=== PATIENT | female | born 1975 | race Hispanic/Latino ===

== ENCOUNTER 2023-01-12 07:13 | Emergency (ER) | payer SELFPAY ==
[2023-01-12 07:21] VITALS: BP 118/76; PULSE 61; RESP 12; TEMP 36.7; O2SAT 100
--- NOTE | 2023-01-12 07:41 | ED.RECABL ---
HPI - Recheck/Abnormal Lab/Rx General Chief Complaint: Recheck/Abnormal Lab/Rx Stated Complaint: need blood transfusion Time Seen by Provider: 01/12/23 07:22 History of Present Illness HPI narrative: Pt with h/o heavy periods presents afer being told her CBC yesterday showed she needed a transfusion today. She had heavy periods earlier in the month but is now down to just light spotting. No lightheadedness, chest pain, difficulty breathing, or other concerning symptoms. Related Data Allergies Allergy/AdvReac Type Severity Reaction Status Date / Time No Known Allergies Allergy Unknown Unverified 04/03/19 12:30 No Known Allergies Allergy Uncoded 04/03/19 12:30 Review of Systems Review of Systems: CONST: No fever. HEENT: No sore throat C/V: No chest pain RESP: No cough GI: No abdominal pain, nausea or vomiting : Light spotting M/S: No joint pain. SKIN: No rash. NEURO: [No headache or focal numbness or weakness] PSYCH: [No depression] [facility] Past Medical History Medical History (Updated 01/12/23 @ 08:29 by Pattie Dunn MD) Anemia Social History Social History Smoking status: Never smoker Alcohol intake: never Exam Narrative: EXAMINATION OF ORGAN SYSTEMS/BODY AREAS: Constitutional: Vital signs per nursing GENERAL:[No acute distress, non-toxic appearing.] HEAD: Normal with no signs of head trauma. EYES: EOMI ENT: Hearing grossly intact LUNGS: Nonlabored breathing. HEART: [Regular rate and rhythm] ABD: [Soft], [nontender to palpation] EXT: Normal range of motion SKIN: [No rashes or lesions.] NEURO: [Alert and oriented x 3. No gross focal sensory or strength deficits.] PSYCH: Normal affect Course Vital Signs Vital signs: Vital Signs Temperature 98.0 F 01/12/23 07:21 Pulse Rate 61 01/12/23 07:21 Respiratory Rate 12 01/12/23 07:21 Blood Pressure 118/76 01/12/23 07:21 Pulse Oximetry 100 01/12/23 07:21 Oxygen Delivery Room Air 01/12/23 07:21 Temperature 98.0 F 01/12/23 07:21 Pulse Rate 65 01/12/23 09:04 Respiratory Rate 12 01/12/23 07:21 Blood Pressure 111/75 01/12/23 09:04 Pulse Oximetry 100 01/12/23 07:21 Oxygen Delivery Room Air 01/12/23 07:21 MDM - Recheck/Abnormal Lab/Rx MDM Narrative Medical decision making narrative: 1) Differential diagnosis: Anemia, dysfunctional uterine bleeding 2) Comorbidities: Anemia 3) External notes reviewed: Prior operative note 4) History sources independently obtained from: Patient, son at bedside 5) Discussion of management with: [] 6) Independent interpretation of: Labs 7) Diagnostic tests or therapies considered but not ordered: [] 8) Social determinants of health: [] 9) Shared decision making: History obtained with help from precision assembler as patient German-speaking 47-year-old female presenting with anemia, has history of this with heavy uterine bleeding, already seeing [facility] for this and has tried multiple therapies including oral contraceptives. She is not currently having any heavy bleeding at this moment, was told to come in for low hemoglobin and blood transfusion. Hemoglobin checked here is stable at 7.9, which I did not note is near her baseline, she is not having ongoing heavy bleeding at this time and I do feel she is stable for discharge at this time and she is happy about this. She has follow-up with her primary care doctor and she can return for any further issues Lab Data 01/12/23 07:40 01/12/23 07:40 Labs: Lab Results 01/12/23 Range/Units 07:40 WBC 5.4 (4.5-10.0) K/mm3 RBC 4.20 (4.2-5.4) M/mm3 Hgb 7.9 L (12.0-15.0) g/dL Hct 28.7 L (37.0-47.0) % MCV 68.3 L (80-100) fl MCH 18.8 L (26-34) pg MCHC 27.5 L (32-36) g/dl RDW 19.9 H (11.5-14.5) % Plt Count 351 (150-375) k/mm3 MPV 8.4 (7.4-10.4) fl Immature Gran % (Auto) 0.2 (0-0.5) % Neut % (Auto) 49.1 (45.5-73.1
[2023-01-12 07:45] LABS: Basophils Absolute Auto 0.1 K/mm3 (0.0-0.1); Basophils Percent Auto 0.9 % (0.2-1.2); Eosinophils Absolute Auto 0.1 K/mm3 (0-0.3); Eosinophils Percent Auto 1.1 % (0-4.4); Hematocrit 28.7 % (37.0-47.0); Hemoglobin 7.9 g/dL (12.0-15.0); Immature Granulocyte Absolute 0.01 K/mm3 (0.00-0.031); Immature Granulocyte Percent A 0.2 % (0-0.5); Lymphocytes Absolute Auto 2.29 K/mm3 (0.9-3.2); Lymphocytes Percent Auto 42.4 % (18.3-44.2); Mean Corpuscular HGB Conc 27.5 g/dl (32-36); Mean Corpuscular Hemoglobin 18.8 pg (26-34); Mean Corpuscular Volume 68.3 fl (80-100); Mean Platelet Volume 8.4 fl (7.4-10.4); Monocytes Absolute Auto 0.3 K/mm3 (0.1-0.6); Monocytes Percent Auto 6.3 % (2.6-8.5); Neutrophils Absolute Auto 2.7 K/mm3 (1.3-6.7); Neutrophils Percent Auto 49.1 % (45.5-73.1); Platelet Count Result 351 k/mm3 (150-375); Red Cell Distribution Width 19.9 % (11.5-14.5); White Blood Count 5.4 K/mm3 (4.5-10.0)
[2023-01-12 07:54] LABS: Alanine Aminotransferase 26 U/L (6-35); Albumin Level 4.2 g/dL (3.5-5.1); Alkaline Phosphatase 69 U/L (38-126); Anion Gap 8 mmol/L (8-16); Aspartate Amino Transferase 29 U/L (14-36); Bilirubin,Total 0.2 mg/dL (0.2-1.3); Blood Urea Nitrogen 10 mg/dL (7-17); Calcium 8.3 mg/dL (8.4-10.2); Carbon Dioxide 26 mmol/L (22-30); Chloride 106 mmol/L (98-107); Estimated CRCL calculation 111 ml/min; Estimated Glomerular Filt Rate > 60; Glucose 106 mg/dL (65-110); Sodium 140 mmol/L (137-145)
[2023-01-12 07:55] LABS: Prothrombin Time 13.2 Seconds (11.1-14.7)
[2023-01-12 07:56] LABS: Partial Thromboplastin Time 29.2 SECONDS (22.3-36.8)
[2023-01-12 08:08] LABS: Large Platelets Present; Platelet Estimate Adequate (Adequate)
[2023-01-12 08:09] LABS: Anisocytosis 2+ (NORMAL); Hypochromasia 1+ (NORMAL); Microcytosis 2+ (NORMAL)
[2023-01-12 08:11] LABS: Spherocytes 1+ (NORMAL)
[2023-01-12 08:17] LABS: Schistocytes None Seen (NORMAL)
[2023-01-12 09:01] VITALS: BP 117/76; BP 126/70; PULSE 59; PULSE 66
[2023-01-12 09:04] VITALS: BP 111/75; PULSE 65
[2023-01-12 09:30] VITALS: BP 126/80; PULSE 76; RESP 16; TEMP 36.8; O2SAT 98
[2023-01-12 09:39] VITALS: TEMP 36.8
== END 2023-01-12 09:39 | disposition home or self-care (01) ==
LOC: ANHED 09:01
PROVIDERS: Emergency Provider Emergency Medicine; PCP Physician Assistant
DX: D64.9 Anemia, unspecified (principal)
CPT/HCPCS: 36415; 80053; 85025; 85610; 85730; 86850; 86900; 86901; 99283

== ENCOUNTER 2024-02-01 18:01 | Emergency (ER) | payer SELFPAY ==
--- NOTE | ~2024-02-01 | CT_ITS ---
CT of the Abdomen and Pelvis: Indication: Abdominal pain Technique: 2.5 mm axial scans were obtained through the abdomen and pelvis following intravenous adm inistration of 100 cc of Omnipaque 350. Dose reduction technique was used on this scan by utilizing a utomated exposure control and iterative reconstruction technique. The dose-length product (DLP) was 4 95.63 mGy-cm. Findings: Scans through the lung bases are unremarkable. The liver, spleen, pancreas, adrenals and kidneys are within normal limits. Cholecystectomy clips are present. No evidence of aortic aneurysm. No lymphadenopathy. No bowel obstruction or bowel wall thickening. There is no evidence to suggest acute appendicitis. Images through the pelvis were performed. Urinary bladder unremarkable. No pelvic mass seen. No ascit es. Impression: No significant abnormalities seen. Reviewed, dictated and finalized at [facility]. Impression: No significant abnormalities seen.
[2024-02-01 18:05] VITALS: BP 128/84; PULSE 81; RESP 16; TEMP 36.4; O2SAT 100
[2024-02-01 21:21] VITALS: BP 141/68; PULSE 73; RESP 20; TEMP 36.6; O2SAT 100
[2024-02-02 01:02] VITALS: BP 132/73; PULSE 64; RESP 16; O2SAT 100
--- NOTE | 2024-02-02 01:12 | ED.GENADULT ---
[facility] - General Adult General Chief complaint: Abdominal Pain Stated complaint: uterine prolapse, bleeding Time Seen by Provider: 02/02/24 01:11 Source: patient and assistant facility manager Mode of arrival: ambulatory Limitations: language barrier History of Present Illness HPI narrative: This is a 48-year-old female who speaks Kyrgyz and presents to the ED for chief complaint of vaginal bleeding x2 weeks straight. Also reports some swelling to the vaginal canal. States that it was hanging out. Patient was seen at another facility recently and told that she may need to have gynecological surgery. She has been waiting for return call to set up surgery but this is not happened yet. She is scheduled to see [facility] LOOM FIXER HELPER in the coming weeks in clinic. States today the bleeding continues and the pelvic swelling had worsened so she came in. States that she has some left lower groin / pelvic pain as well. Denies fevers, chills, syncope, lightheadedness shortness of breath, chest pain, nausea, vomiting, diarrhea Related Data Allergies Allergy/AdvReac Type Severity Reaction Status Date / Time No Known Allergies Allergy Unknown Verified 02/02/24 01:04 Review of Systems Review of Systems: All systems as dictated in [facility] Past Medical History Medical History (Updated 02/02/24 @ 03:25 by Ernesto Jones PA-C) Anemia Social History Social History Smoking status: Never smoker Alcohol intake: never Exam Narrative: GENERAL: Well-appearing, well-nourished, and in no acute distress. HEAD: Normocephalic, atraumatic. EYES: PERRLA and EOMI. ENT: Nares clear, no rhinorrhea or epistaxis. Mucous membranes moist. Oropharynx without tonsillar hypertrophy exudate or other lesions. NECK: Supple. No adenopathy or masses. CHEST: No respiratory distress. Clear to auscultation. No wheezes rales or rhonchi HEART: Regular rate and rhythm. No murmur heard. Normal peripheral pulses. ABDOMEN: Soft, nontender, nondistended, normal active bowel sounds. MSK: Normal range of motion. No edema. SKIN: Warm, dry, no rash. NEURO: Alert and oriented x4. No focal deficits. PSYCH: Normal mood and affect. pelvic exam done with female RN kiln firer present: no uterine prolapse there is some weakening of the vaginal wall anteriorly. Mild amount of blood pooling in the vaginal vault. No purulence . no lesions. Course Vital Signs Vital signs: Vital Signs Temperature 97.6 F 02/01/24 18:05 Pulse Rate 81 02/01/24 18:05 Respiratory Rate 16 02/01/24 18:05 Blood Pressure 128/84 02/01/24 18:05 Pulse Oximetry 100 02/01/24 18:05 Oxygen Delivery Room Air 02/01/24 18:05 Temperature 97.9 F 02/01/24 21:21 Pulse Rate 64 02/02/24 01:02 Respiratory Rate 16 02/02/24 01:02 Blood Pressure 132/73 02/02/24 01:02 Pulse Oximetry 100 02/02/24 01:02 Oxygen Delivery Room Air 02/01/24 18:05 Medical Decision Making MDM Narrative Medical decision making narrative: This is a 48-year-old female who presents to the ED for chief complaint of abnormal vaginal bleeding as well as possible uterine prolapse. Vitals are normal. Exam is benign overall. No evidence of uterine prolapse. There may be a minor cystocele. There is mild bleeding present as well a pelvic exam. Hemoglobin is low at 8.2 but this is consistent with a lot of her previous measures. Urinalysis shows 1+ leuks and 11-20 whites with 21-50 red blood cells. She is not exhibiting urinary symptoms. Urine culture is pending will hold on treatment for now. CT abdomen pelvis with contrast shows hepatic steatosis but no acute findings. Patient is doing well with Toradol on re-evaluation. She will be given referral to OBGYN for surgical management of possible cystocele. Rx for Toradol given. Pt will be discharged in stable condition. Return precautions given and supportive measures discussed. Pt is
[2024-02-02 02:03] LABS: Basophils Absolute Auto 0.1 K/mm3 (0.0-0.1); Basophils Percent Auto 0.6 % (0.2-1.2); Eosinophils Absolute Auto 0.1 K/mm3 (0-0.3); Eosinophils Percent Auto 1.2 % (0-4.4); Hematocrit 29.6 % (37.0-47.0); Hemoglobin 8.2 g/dL (12.0-15.0); Immature Granulocyte Absolute 0.02 K/mm3 (0.00-0.031); Immature Granulocyte Percent A 0.3 % (0-0.5); Lymphocytes Absolute Auto 3.23 K/mm3 (0.9-3.2); Lymphocytes Percent Auto 41.8 % (18.3-44.2); Mean Corpuscular HGB Conc 27.7 g/dl (32-36); Mean Corpuscular Hemoglobin 19.3 pg (26-34); Mean Corpuscular Volume 69.6 fl (80-100); Mean Platelet Volume 9.6 fl (7.4-10.4); Monocytes Absolute Auto 0.6 K/mm3 (0.1-0.6); Neutrophils Absolute Auto 3.7 K/mm3 (1.3-6.7); Neutrophils Percent Auto 48.1 % (45.5-73.1); Platelet Count Result 324 k/mm3 (150-375); Red Blood Count 4.25 M/mm3 (4.2-5.4); Red Cell Distribution Width 21.4 % (11.5-14.5); White Blood Count 7.7 K/mm3 (4.5-10.0)
[2024-02-02 02:12] LABS: BEDSIDEPREGUCG Negative
[2024-02-02] MEDS: KETOROLAC 30 MG/ML VIAL (*BKC) IV PUSH (02:12)
[2024-02-02 02:15] LABS: Anion Gap 10 mmol/L (4-12); Blood Urea Nitrogen 14 mg/dL (7-17); Calcium 8.9 mg/dL (8.4-10.2); Carbon Dioxide 25 mmol/L (22-30); Chloride 106 mmol/L (98-107); Estimated CRCL calculation 108 ml/min; Estimated Glomerular Filt Rate > 60; Glucose 116 mg/dL (65-110); INR 1.1; Lipase 55 U/L (23-300); Potassium 4.2 mmol/L (3.4-5.0); Sodium 141 mmol/L (137-145)
[2024-02-02 02:16] LABS: Partial Thromboplastin Time 28.2 Seconds (22.3-36.8)
[2024-02-02 02:22] LABS: Hypochromasia 1+; Microcytosis 1+ (NORMAL); Ovalocytes 1+; Platelet Estimate Adequate (Adequate); Schistocytes Rare; Stomatocytes 1+
[2024-02-02 02:45] LABS: Add Urine Microscopic? YES; Appearance Urine Clear (Clear); Bilirubin Urine Negative (Negative); Blood Urine 2+ (Negative); Color Urine Yellow (Yellow); Glucose Urine UA Negative (Negative); Ketones Urine Negative (Negative); Leukocyte Esterase Ur 1+ LEU/UL (Negative); Nitrate Urine Negative (Negative); Non Pathogenic Casts 0-2; Protein Urine Negative (Negative); RBC Urine 21-50 /hpf (0-2); Specific Grav Ur 1.025 (1.001-1.035); Squamous Epithelial Cell Urine None Seen /hpf (Few); Urobilinogen Urine 0.2 mg/dL (<2.0); pH Urine 5.5 (5.0-9.0)
[2024-02-02 03:05] LABS: Bacteria Urine Trace /hpf
[2024-02-02 04:20] VITALS: BP 122/64; PULSE 76; RESP 17; O2SAT 100
== END 2024-02-02 04:20 | disposition home or self-care (01) ==
PROVIDERS: Emergency Provider Physician Assistant; PCP Physician Assistant
DX: N93.9 Abnormal uterine and vaginal bleeding, unspecified (principal)
CPT/HCPCS: 36415; 74177; 80048; 81001; 81025; 83690; 85025; 85610; 85730; 86850; 86900; 86901; 87086; 87088; 96374; 99284; J1885; Q9967